=== PATIENT | male | born 1965 | race Hispanic/Latino ===

== ENCOUNTER 2020-07-15 08:46 | Emergency (ER) | payer SELFPAY ==
[~2020-07-15] VITALS: Ht 165.1 cm; Wt 113.4 kg
[2020-07-15 09:16] LABS: BASOPHILS % 0.4 % (0.0-1.0); EOSINOPHILS # (AUTO) 0.2 (0.0-0.4); EOSINOPHILS % 3.3 % (0.0-6.0); HEMATOCRIT 40.1 % (38.2-49.6); HEMOGLOBIN 13.7 g/dL (14.0-18.0); LYMPHOCYTES # (AUTO) 1.7 (1.0-3.2); LYMPHOCYTES % 30.6 % (18.0-39.1); MEAN CORPUSCULAR HEMOGLOBIN 29.3 pg (28-32); MEAN CORPUSCULAR HGB CONC 34.2 g/dL (31-35); MEAN CORPUSCULAR VOLUME 85.7 fL (81-99); MONOCYTES # (AUTO) 0.4 (0.2-0.8); MONOCYTES % 6.7 % (4.4-11.3); NEUTROPHILS # (AUTO) 3.2 (2.1-6.9); NEUTROPHILS % 58.8 % (38.7-80.0); PLATELET COUNT 232 x10e3/uL (140-360); RED BLOOD COUNT 4.68 x10e6/uL (4.3-5.7); RED CELL DISTRIBUTION WIDTH 12.2 % (11.7-14.4)
[2020-07-15 09:36] LABS: ALANINE AMINOTRANSFERASE 24 IU/L (0-55); ALBUMIN 3.8 g/dL (3.5-5.0); ALBUMIN/GLOBULIN RATIO 1.1 (0.8-2.0); ALKALINE PHOSPHATASE 105 IU/L (40-150); BLOOD UREA NITROGEN 13 mg/dL (7-26); BUN/CREATININE RATIO 18 (6-25); CALCIUM 8.5 mg/dL (8.4-10.2); CARBON DIOXIDE 24 mmol/L (22-29); CHLORIDE 107 mmol/L (98-107); CREATININE, SERUM 0.73 mg/dL (0.72-1.25); EST GLOMERULAR FILTRATION RATE > 60 ML/MIN (60-); GLUCOSE 110 mg/dL (74-118); SODIUM 139 mmol/L (136-145)
[2020-07-15] MEDS ORDERED: TAPAZOLE5 MG PO (10:07)
[2020-07-15] MEDS ORDERED: FUROSEMIDE40 MG PO (10:07)
[2020-07-15 10:11] LABS: FREE THYROXINE INDEX 2.5593 (1.4-3.8); THYROID STIMULATING HORMONE 0.002 uIU/mL (0.350-4.940)
[2020-07-15] MEDS ORDERED: SPIRONOLACTONE25 MG PO (10:13)
[2020-07-15] MEDS ORDERED: ASPIRIN CHEW81 MG PO (10:13)
[2020-07-15] MEDS ORDERED: METOPROLOL TART50 MG PO (10:13)
[2020-07-15] MEDS ORDERED: LACTULOSE20 GM/30 M PO (10:13)
[2020-07-15] MEDS ORDERED: IBUPROFEN800 MG PO (10:13)
[2020-07-15] MEDS ORDERED: OMEPRAZOLE40 MG PO (10:13)
[2020-07-15] MEDS ORDERED: TERAZOSIN HCL5 MG PO (10:13)
[2020-07-15 10:59] VITALS: BP 114/77
== END 2020-07-15 11:08 | disposition home or self-care (01) ==
LOC: ER 08:54
DX: R07.9 Chest pain, unspecified (principal); I10 Essential (primary) hypertension; B19.20 Unspecified viral hepatitis C without hepatic coma; E03.9 Hypothyroidism, unspecified; Z87.891 Personal history of nicotine dependence
CPT/HCPCS: 36415; 71045; 80053; 83880; 84436; 84443; 84479; 84484; 85025; 93005; 99284